=== PATIENT | female | born 1995 ===

== ENCOUNTER 2025-01-12 09:49 | Outpatient (OUT) | payer SELFPAY ==
--- NOTE | 2025-01-12 12:31 | PC.NURSE ---
Aydee and Nissa arrive for support. Nissa delivered 01/08/2025 at [facility]. Uncomplicated and delivery with exception of hypothyroid which is treated with levothyroxine daily. Minimal breast changes in size, type 2-3 noted upon inspection. Left breast slightly tubular with nipple pointing down. Wide space between breasts noted. Right breast with more round shape with nipple pointing down. Right breast has always been more sensitive to painful sensations than left. Baby to breast independently, with bulls-eye latch. Minimal sucking and uncomfortable latch for mom. Demo of asymmetrical latch with improvement in comfort and sucking noted. Discussed desire to continue trying to establish supply with pumping, latching and offering supplements as needed. Plan is to feed at breast 10-15 minutes if needing to keep baby engaged and not sleep. Longer if feels baby is awake and swallowing well. Will then move to pumping with wearable pumps to finish feeding with bottle and diaper changes. Will pump 15-20 minutes and finish process under 45 minutes. This allows for more rest in between feeds and continues needed stimulation for supply. Will continue for 1 week, returning 01/20/2025 for support. Aware to call as needed. Leaves ambulatory for home, voices feels better about this process.
== END 2025-01-12 12:41 | disposition home or self-care (01) ==
PROVIDERS: Visit Provider Obstetrics & Gynecology
DX: Z39.1 Encounter for care and examination of lactating mother (principal)